=== PATIENT | male | born 1935 | race Caucasian/White ===

== ENCOUNTER 2022-08-14 23:59 | Inpatient (IN) | payer MEDICARE, SELFPAY ==
[2022-08-15] VITALS (7 sets, daily range): BP systolic 73–144; BP diastolic 47–82; PULSE 98–151; RESP 28–36; TEMP 37.7–38.3; O2SAT 73–88; BMI 21.4
--- NOTE | 2022-08-15 00:10 | ED_ITS ---
HPI - Altered Mental Status General: Chief Complaint: Altered Mental Status Stated Complaint: AMS/SOB Time Seen by Provider: 08/14/22 23:59 Source: family and EMS Mode of arrival: EMS Limitations: altered mental status History of Present Illness: 7-year-old male family states I believe it probably had a stroke 2 to 3 days ago he states that he does not go to the doctor and confused here he states that he had loss movement to his left side and gradually became more altered he states tonight that he become unresponsive and very short of breath so he called EMS patient came in on nonrebreather at 15 L and is 85% on that he is minimally responsive will not follow any commands family at instructed the EMS they did not want any treatment and was want him to be placed on comfort care and made comfortable Review of Systems General: Reports: ROS unobtainable due to mental status PFSH ED PFSH: Medical History (Updated 08/15/22 @ 01:43 by Katherine Shields MD) CVA (cerebral vascular accident) Social History (Updated 08/15/22 @ 00:11 by Katherine Shields MD) Substance/Drug Use: never Physical Exam Const: COMMON NORMALS: negative for patient oriented x3 GENERAL APPEARANCE: in distress, ill appearing and frail appearing HENMT: COMMON NORMALS: normocephalic and atraumatic HEAD & SCALP: normocephalic and atraumatic Eye: COMMON NORMALS: Equal, round and reactive pupils present PUPIL: Yes Equal, round and reactive pupils present Neck/C-Spine: COMMON NORMALS: supple Chest: COMMONS NORMALS: normal inspection of the chest Resp: OTHER: Very coarse rales bilaterally patient is tachypneic in distress Cardio: RATE: tachycardic RHYTHM: abnormal rhythm irregularly irregular GI: COMMON NORMALS: Normal to inspection, nondistended, normoactive bowel sounds present Extremity: COMMON NORMALS: normal to inspection Neuro: COMMON NORMALS: negative for patient oriented x3 OTHER: Patient's unresponsive he will not follow any commands at this time Psych: COMMON NORMALS: negative for mental status grossly normal Skin: COMMON NORMALS: no rashes or lesions noted GENERAL SKIN EXAM: no rashes or lesions noted Course Vital Signs: Vital signs: Vital Signs Temperature 101.0 F H 08/15/22 00:05 Pulse Rate 115 H 08/15/22 01:44 Respiratory Rate 36 H 08/15/22 00:05 Blood Pressure 85/49 08/15/22 01:54 Pulse Oximetry 73 L 08/15/22 01:44 Oxygen Delivery Me thod 08/15/22 00:35 Oxygen Flow Rate 10 08/15/22 00:05 MDM - Altered Mental Status Medical Decision Making Patient presents here with altered mental status along with respiratory distress I spoke to him at length to family including patient's daughters and and they are all in agreement that they want to make him comfort care with no treatment at all patient here has been unresponsive is given him some morphine and Ativan for comfort spoke to the hospitalist will admit this time for comfort care. 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
[2022-08-15] MEDS: LORazepam 2 mg/mL INJ 1 mL IVP ×2 (00:25→09:46)
[2022-08-15] MEDS: morphine 4 mg/mL SDV 1 mL IVP ×2 (00:25→01:19)
[2022-08-15] MEDS: LORazepam 2 mg/mL INJ 1 mL 1 MG IVP (01:18)
--- NOTE | 2022-08-15 01:59 | P.HP_ITS ---
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 Currently patient is not alert oriented x3, he does not awaken, does not awaken to his name, does not withdraw from pain, does not respond to sternal rub, he is hypotensive, tachycardic, tachypneic, febrile, O2 sats in the low 70s, on 2 L. Patient's family is at bedside, patient's is at bedside. She tells me that patient has never wanted to see a physician, in his life, he does not want any medical interventions, does not want testing, does not want treatment, he would be angry that he is here in the hospital, as he would never want any medical interventions. Back in May, they think he had a stroke, as he had an episode in which she suddenly developed left-sided deficits, left-sided weakness, since then he has been ambulating with a cane. Family tells me that intermittently, he has these episodes in which he has sudden weakness on the left side if he can speak any recurrent TIAs but they are not sure. He also had sudden complaints of severe left-sided chest pain, which he did not seek medical attention. A few days ago, he had noticed that he continued to have these episodes of significant worsening of his left-sided defi cits, almost like twitching of the left side of his body left side of his face. It was against patient's wishes to call EMS, he did not want to be hospitalized, he did not want medical interventions. He had recurrent episodes of choking, coughing, and trouble clearing his secretions. Progressively got more weak, more confused, he has not urinated in 4 days, less responsive, he has not in 4 days, he has not responded in 4 days, he remains bedridden. Patient became from arrival, concerns for abnormal breathing, nonresponsiveness. As his clinical condition deteriorated, patient's family was concerned for him suffering, so they called EMS. Upon arrival patient had acute hypoxic respiratory failure, shock, febrile, tachypnea, nonresponsiveness. Patient's family did not want to have any true treatment, did not want to have to have any testing, they just wanted us to ease his pain did ease his suffering and to honor his final wishes. Review of Systems General: Reports: ROS unobtainable due to medical condition and ROS unobtainable due to mental status PFSH Acute PFSH: Medical History (Updated 08/15/22 @ 02:09 by Puneet Gr MD) CVA (cerebral vascular accident) Surgical History (Updated 08/15/22 @ 02:05 by Puneet Gr MD) No pertinent past surgical history Family History (Updated 08/15/22 @ 02:06 by Puneet Gr MD) Daughter Diabetes Social History (Updated 08/15/22 @ 02:06 by Puneet Gr MD) Smoking and tobacco status: never smoked Alcohol intake: never Substance/Drug Use: never Vitals/I&O/Wt Last Vital Signs Temp 101.0 F H 08/15/22 00:05 Pulse 115 H 08/15/22 01:44 Resp 36 H 08/15/22 00:05 BP 85/49 08/15/22 01:54 Pulse Ox 73 L 08/15/22 01:44 O2 Del Method 08/15/22 00:35 O2 Flow Rate 10 08/15/22 00:05 Weight last 48 hrs Weight 65.771 kg Physical Exam Const: EXAM LIMITATIONS: altered mental status GENERAL APPEARANCE: lethargic, ill appearing, frail appearing and diaphoretic NUTRITIONAL APPEAR ANCE: cachectic ORIENTATION/CONSCIOUSNESS: Yes patient obtunded and Yes lethargic; not awake, not oriented to person, not oriented to place and not oriented to time Neck/C-Spine: COMMON NORMALS: no lymphadenopathy Lymph: LYMPHATIC: no lymphadenopathy noted Chest: COMMONS NORMALS: normal inspection of the chest Resp: EFFORT & INSPECTION: Yes tachypneic, Yes respiratory distress, Yes retractions, Yes uses accessory muscles and Yes paradoxical thoraco-abdominal movements AUSCULTATION: crackles and wheezes Cardio: JUGULAR VENOUS DISTENTION: no JVD and JVD RATE: tachycardic RHYTHM: regular rhythm HEART SOUNDS: S1 normal heart sound present and S2 normal heart sound present GI: INSPECTION: Yes normal to inspection AUSCULTATION: Yes normoactive bowel sounds PALPATION: Yes Soft to palpation, No Firmness to palpation present (GI), No Tenderness to palpation present (GI), No Guarding due to palpation present (GI) and No Rigid due to palpation Extremity: NARRATIVE EXTREMITY EXAM: 1+ pitting edema Neuro: OTHER: Does not follow neurologic testing Sepsis: Is patient septic: Yes Focused sepsis exam performed: Yes Focused sepsis exam: Pale, diaphoretic, obtunded, hypoxic, hypotensive, tachycardic, DP PT pulses by lower extremities nonpalpable has mottling up to the level of the thighs Date exam was performed: 08/15/22 Time exam was performed: 02:08 A&P Assessment and plan (1) Acute encephalopathy: (2) Acute respiratory failure with hypoxia: (3) Aspiration pneumonia: (4) Acute renal failure: (5) Altered mental status: (6) Respiratory distress: (7) Septic shock: Plan I think likely what has happened is is that patient has likely developed an acute CVA resulting in aspiration pneumonia resulting in acute encephalopathy, acute respiratory failure, respiratory distress, acute renal failure, septic shock -I explained this in detail with the patient's family -However without testing I cannot give him an exact answer -And it is against patient's wish for any treatment -And is against patient's wish for any testing or any treatment, it is also against patient's wish to be hospitalized according to family members -However they do not want him to suffer and they will have the tools to take care of him currently at home -They want to certainly take him home if he were to survive longer than 24 hours, but they would want to take him home on hospice -So what we will do admit him under comfort care eases his pain, ease of suffering, goal is not to hasten his but to make him comfortable -Confirmed with family DNR/DNI, confirmed with family that they want to just make him comfortable, confirmed with family that he did not want any testing, they do want any interventions, they just want him to be comfortable, discussed risk and benefits, they wish; all questions answered, agreed to proceed -We will start comfort care orders -If he is here until the morning, will have case management see him and set up hospice for home if mom is agreeable to take him home on hospice Attestations Medical Necessity Statement*: Patient requires hospitalization for comfort care, inpatient, greater than 2 midnights Coding Level of Care Code Acute Code for Chg Fwd Exam Detailed Diagnoses Acute encephalopathy G93.40 Acute respiratory failure with hypoxia J96.01 Aspiration pneumonia J69.0 Acute renal failure N17.9 Altered mental status R41.82 Respiratory distress R06.03 Septic shock A41.9; R65.21
--- NOTE | 2022-08-15 07:18 | PC.NURSE ---
Mr. Chauhan has been resting quietly since he was given Atropine. Emotional support given to family members and asked the to let us know if they need anything. They are hoping Hospice will come [facility] so he can pass at home.
[2022-08-15] MEDS: morphine 10 mg/0.5 mL oral liq UD SUBLINGUAL (09:46)
--- NOTE | 2022-08-15 12:19 | P.DS_ITS ---
Discharge Providers Date of Admission: 08/15/22 02:18 Date of Discharge: August 15, 2022 Attending Provider at Admission: Puneet Gr MD Attending Provider at Discharge: Anna Mcbride MD Diagnoses at Discharge Discharge Diagnosis (1) Acute encephalopathy: Status: Acute (2) Acute respiratory failure with hypoxia: Status: Acute (3) Aspiration pneumonia: Status: Acute (4) Acute renal failure: Status: Acute (5) Altered mental status: Status: Acute (6) Respiratory distress: Status: Acute (7) Septic shock: Status: Acute Reason for Visit Reason for Visit: AMS/SOB Brief History: Sunil Chauhan is a 87 year old male no known medical history, as he has not seen a physician in a long time but family feels that 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 Currently patient is not alert oriented x3, he does not awaken, does not awaken to his name, does not withdraw from pain, does not respond to sternal rub, he is hypotensive, tachycardic, tachypneic, febrile, O2 sats in the low 70s, on 2 L.? Patient's family is at bedside, patient's is at bedside.? She tells me that patient has never wanted to see a physician, in his life, he does not want any medical interventions, does not want testing, do es not want treatment, he would be angry that he is here in the hospital, as he would never want any medical interventions.? Back in May, they think he had a stroke, as he had an episode in which she suddenly developed left-sided deficits, left-sided weakness, since then he has been ambulating with a cane.? Family tells me that intermittently, he has these episodes in which he has sudden weakness on the left side if he can speak any recurrent TIAs but they are not sure.? He also had sudden complaints of severe left-sided chest pain, which he did not seek medical attention.? A few days ago, he had noticed that he continued to have these episodes of significant worsening of his left-sided deficits, almost like twitching of the left side of his body left side of his face.? It was against patient's wishes to call EMS, he did not want to be hospitalized, he did not want medical interventions.? He had recurrent episodes of choking, coughing, and trouble clearing his secretions.? Progressively got more weak, more confused, he has not urinated in 4 days, less responsive, he has not in 4 days, he has not responded in 4 days, he remains bedridden.? Patient became from arrival, concerns for abnormal breathing, nonresponsiveness.? As his clinical condition deteriorated, patient's family was concerned for him suffering, so they called EMS.? Upon arrival patient had acute hypoxic respir atory failure, shock, febrile, tachypnea, nonresponsiveness.? Patient's family did not want to have any true treatment, did not want to have to have any testing, they just wanted us to ease his pain did ease his suffering and to honor his final wishes. Hospital Course Hospital Course Family does not want a blood draws, any kind of treatment at this time. They would like to take the patient home with hospice. They state they already have a hospital bed and would like to take him home this upcoming afternoon. Disc ussed with case management. Hospice company was contacted. Patient will be discharged home with hospice in stable condition at this time. Hospice to admit and follow-up. Questions answered to family satisfaction at this moment. Physical Exam Narrative: Resting comfortably in bed. Does not seem to be in any pain at this time. Lungs have mild rhonchi bilaterally, abdomen soft nontender. Limited exam due to Comfort Care status. Discharge Data Vitals Last Vital Signs Temp 99.8 F H 08/15/22 03:00 Pulse 98 08/15/22 03:00 Resp 28 H 08/15/22 03:00 BP 73/47 08/15/22 03:00 Pulse Ox 76 L 08/15/22 03:00 O2 Del Method 08/15/22 03:00 O2 Flow Rate 2 08/15/22 03:00 Discharge Plan Discharge Patient Disposition: Hospice - Home Condition: Stable Prescriptions: No Action No Known Home Medications Discharge Orders: Discharge Order (Routine); Ordered 08/15/22 Ordered By: Anna Mcbride Discharge Diet: Advance as tolerated Discharge Activity: Bedrest Activity Restrictions/Additional Instructions: Patient will be discharged to home with hospice as per family wishes. Discharge Attestations Time Spent in Discharge Care*: less than 30 min Quality Metrics Clinical Quality Measures [ No reported AMI, CVA or VTE this stay] Coding Level of Care Code Acute Chg FW DC note Diagnoses Acute encephalopathy G93.40 Acute respiratory failure with hypoxia J96.01 Aspiration pneumonia J69.0 Acute renal failure N17.9 Altered mental status R41.82 Respiratory distress R06.03 Septic shock A41.9; R65.21
== END 2022-08-15 13:58 | disposition hospice, home (50) | DRG 951 ==
LOC: ER 08-15 01:43 → MEDSURG 08-15 02:18
PROVIDERS: Admitting Provider Family Medicine; Emergency Provider Emergency Medicine; Visit Provider Internal Medicine
DX: Z51.5 Encounter for palliative care (principal); A41.9 Sepsis, unspecified organism; J69.0 Pneumonitis due to inhalation of food and vomit; R65.21 Severe sepsis with septic shock; G93.41 Metabolic encephalopathy; J96.01 Acute respiratory failure with hypoxia; I69.954 Hemiplegia and hemiparesis following unspecified cerebrovascular disease affecting left non-dominant side; N17.9 Acute kidney failure, unspecified; I95.9 Hypotension, unspecified; Z66 Do not resuscitate
CPT/HCPCS: 51702; 96374; 96375; 96376; 99285; J2060; J2270